=== PATIENT | male | born 1970 | race American Indian/Alaskan Native ===

== ENCOUNTER 2021-06-15 18:10 | Inpatient (IN) | payer OTHER ==
--- NOTE | 2021-06-15 18:22 | Emergency Department Report ---
HPI - General Time Seen by Provider: 06/15/21 18:15 - HPI HPI: Room 18 The patient is a 50-year-old male present with a chief complaint of hypoxia/altered mental status. Per EMS the patient was recently diagnosed with COVID-19. The patient's son found the patient with increased work of breathing and when he attempted to awaken him the patient appeared acutely altered. EMS was called and arrived on scene to find the patient with an SPO2 in the 40s with a GCS of 12. Patient was placed on nonrebreather with improvement of his SPO2 to approximately 79%. Patient became alert and oriented x3 after supplemental O2. GCS 15 ED Past Medical Hx - Past Medical History Hx Hypertension: Yes - Surgical History Past Surgical History?: No - Family History Family history: no significant - Social History Smoking Status: Unknown if ever smoked ED Review of Systems ROS: Stated complaint: RESPIRATORY FAILURE Other details as noted in HPI Constitutional: no symptoms reported Eyes: denies: eye pain ENT: denies: throat pain Respiratory: cough, shortness of breath Cardiovascular: denies: chest pain Endocrine: no symptoms reported Gastrointestinal: denies: abdominal pain Musculoskeletal: denies: back pain Neurological: confusion Physical Exam - Physical Exam Physical Exam: GENERAL: The patient is well-developed well-nourished male lying on stretcher not appearing to be in acute distress nonrebreather in place. [] HEENT: Normocephalic. Atraumatic. Extraocular motions are intact. Patient has moist mucous membranes. NECK: Supple. Trachea midline CHEST/LUNGS: Occasional crackle with occasional coarse breath sounds. There is no respiratory distress noted. HEART/CARDIOVASCULAR: Regular. There is tachycardia. There is no gallop rub or murmur. ABDOMEN: Abdomen is soft, nontender. Patient has normal bowel sounds. There is no abdominal distention. SKIN: There is no rash. There is no edema. There is no diaphoresis. NEURO: The patient is awake, alert, and oriented. The patient appears slightly confused when asked questions. The patient is cooperative. The patient has no focal neurologic deficits. The patient has normal speech. GCS 15 MUSCULOSKELETAL: There is no evidence of acute injury. ED Medical Decision Making - Lab Data Result diagrams: 06/15/21 19:28 06/15/21 19:28 Laboratory Tests 06/15/21 06/15/21 06/15/21 19:28 19:28 19:28 WBC 11.7 H RBC 6.09 H Hgb 18.7 H Hct 53.6 H MCV 88 MCH 31 MCHC 35 H RDW 13.8 Plt Count 109 L Lymph % (Auto) 8.0 L [place] % (Auto) 14.7 H Eos % (Auto) 0.0 Baso % (Auto) 0.2 Lymph # (Auto) 0.9 L [place] # (Auto) 1.7 H Eos # (Auto) 0.0 Baso # (Auto) 0.0 Seg Neutrophils % 77.1 H Seg Neutrophils # 9.0 H D-Dimer Sodium 135 L Potassium 4.9 Chloride 95.9 L Carbon Dioxide 24 Anion Gap 20 BUN 87 H Creatinine 2.6 H Estimated GFR 26 BUN/Creatinine Ratio 33 Glucose 140 H Lactic Acid 3.70 H* Calcium 8.0 L Ferritin Total Bilirubin 2.10 H AST 132 H ALT 112 H Alkaline Phosphatase 76 Lactate Dehydrogenase Troponin T 0.066 H C-Reactive Protein Total Protein 7.4 Albumin 3.5 L Albumin/Globulin Ratio 0.9 Triglycerides 275 H Cholesterol 144 LDL Cholesterol Direct 69 HDL Cholesterol 27 L Cholesterol/HDL Ratio 5.33 06/15/21 06/15/21 06/15/21 19:28 19:28 19:28 WBC RBC Hgb Hct MCV MCH MCHC RDW Plt Count Lymph % (Auto) [place] % (Auto) Eos % (Auto) Baso % (Auto) Lymph # (Auto) [place] # (Auto) Eos # (Auto) Baso # (Auto) Seg Neutrophils % Seg Neutrophils # D-Dimer > 43849 H Sodium Potassium Chloride Carbon Dioxide Anion Gap BUN Creatinine Estimated GFR BUN/Creatinine Ratio Glucose 132 H Lactic Acid Calcium Ferritin 9451.0 H Total Bilirubin AST ALT Alkaline Phosphatase Lactate Dehydrogenase 2289 H Troponin T C-Reactive Protein 11.10 H Total Protein Albumin Albumin/Globulin Ratio Triglycerides Cholesterol LDL Cholesterol Direct HDL Cholesterol Cholesterol/HDL Ratio - EKG Data -: EKG Interpreted by Me EKG shows normal: sinus rhythm Rate: normal - EKG Data When compared to previous EKG there are: previous EKG unavailable Interpretation: other (No ischemic changes seen) - Radiology Data Radiology results: report reviewed (Chest x-ray), image reviewed (Chest x-ray) interpreted by me: Chest [id number] haziness. No pneumothorax. [facility] [address] [place] [address] XRay Report Signed Patient: JAY ABAD MR#: [id number] : 1970 Acct:[id number] Age/Sex: 50 / M ADM Date: 06/15/21 Loc: ED Attending Dr: Ordering Physician: AZUL CARLOS MD Date of Service: 06/15/21 Procedure(s): XR chest 1V ap Accession Number(s): [id number] cc: AZUL CARLOS MD Fluoro Time In Minutes: Chest single view INDICATION: Dyspnea IMPRESSION: The heart is enlarged. There is patchy bilateral airspace pneumonia noted bilaterally. Signer Name: Miguelito Champion MD Signed: 06/15/2021 6:44 PM Workstation Name: [id number] Transcribed By: BC Dictated By: Miguelito Champion MD Electronically Authenticated By: Miguelito Champion MD Signed Date/Time: 06/15/211843 DD/ 43 TD/TT: Print Cancel - Differential Diagnosis COVID-19 positive test (U07.1, COVID-19) with Acute Pneumonia (J12.89, O Critical care attestation.: If time is entered above; I have spent that time in minutes in the direct care of this critically ill patient, excluding procedure time. ED Disposition Clinical Impression: Pneumonia due to COVID-19 virus, Hypoxia Disposition: ADMITTED INPATIENT Is pt being admited?: Yes Does the pt Need Aspirin: No Condition: Serious Instructions: Bacterial Pneumonia (ED) Time of Disposition: 21:41 (Hospitalist called (Dr Boyd/Lynn))
--- NOTE | 2021-06-15 18:48 | XRay Report ---
Chest single view INDICATION: Dyspnea IMPRESSION: The heart is enlarged. There is patchy bilateral airspace pneumonia noted bilaterally. Signer Name: Miguelito Champion MD Signed: 06/15/2021 6:44 PM Workstation Name: [id number]
[2021-06-15] MEDS ORDERED: SODIUM CHLORIDE 0.9% 1000 ML 1,000 ML IV ONE (19:45)
[2021-06-15 20:04] LABS: Basophils % (Auto) 0.2 % (0.0-1.8); Hematocrit 53.6 % (35.5-45.6); Hemoglobin 18.7 gm/dl (11.8-15.2); Lymphocytes # (Auto) 0.9 K/mm3 (1.2-5.4); Mean Corpuscular HGB Conc 35 % (32-34); Mean Corpuscular Volume 88 fl (84-94); Monocytes # (Auto) 1.7 K/mm3 (0.0-0.8); Monocytes % (Auto) 14.7 % (0.0-7.3); Red Blood Count 6.09 M/mm3 (3.65-5.03); Red Cell Distribution Width 13.8 % (13.2-15.2)
[2021-06-15 20:08] LABS: Platelet Count 109 K/mm3 (140-440)
[2021-06-15 20:17] LABS: C-Reactive Protein 11.1 mg/dL (0.00-1.30)
[2021-06-15 20:26] LABS: Albumin 3.5 g/dL (3.9-5)
[2021-06-15] MEDS ORDERED: AZITHROMYCIN/NS 500 MG/250 ML 500 MG/250 ML BAG IV ONE (20:30)
[2021-06-15] MEDS ORDERED: cefTRIAXone/NS 1 GM/50 ML 1 GM/50 ML BAG IV ONE (20:30)
[2021-06-15] MEDS ORDERED: dexAMETHasone 20 MG/5 ML VIAL IV ONE (20:30)
[2021-06-15 20:58] LABS: Chol/HDL Ratio 5.33 %
[2021-06-15] MEDS ORDERED: LORazepam 2 MG/ML VIAL IV ONE (21:42)
[2021-06-15 22:56] LABS: Amorphous Crystals,Urine Few; Bilirubin,Urine NEG (Negative); Blood,Urine MOD (Negative); Color,Urine Yellow (Yellow); Granular Casts,Urine 25 /LPF; Mucus,Urine FEW /HPF
[2021-06-15] MEDS ORDERED: ONDANSETRON 4 MG/2 ML INJ IV PRN (22:59)
[2021-06-15] MEDS ORDERED: ACETAMINOPHEN 325 MG TAB PO PRN (22:59)
[2021-06-15] MEDS ORDERED: MORPHINE 4 MG/1 ML INJ IV PRN (22:59)
[2021-06-15] MEDS ORDERED: MAGNESIUM HYDROXIDE (MOM) ORAL LIQD UDC PO PRN (22:59)
[2021-06-15] MEDS ORDERED: MORPHINE 2 MG/1 ML INJ IV PRN (22:59)
[2021-06-15] MEDS ORDERED: SODIUM CHLORIDE 0.9% 1000 ML 1,000 ML IV SCH (23:00)
--- NOTE | 2021-06-15 23:21 | History and Physical Report ---
History of Present Illness Date of examination: 06/15/21 Date of admission: 06/15/2021 Chief complaint: Shortness Altered Mental Status History of present illness: 50-year-old male with significant past medical history of hypertension brought into the emergency room by EMS today complaining of shortness of breath. Patient was recently diagnosed with COVID-19 about a week ago and over the past few days he has had increased work of breathing. Oxygen saturation upon arrival of EMS was about 40% on room air, patient was found to be altered and was subsequently placed on nonrebreather with improvement of oxygen saturation to the 70s. Upon arrival in the emergency room patient was placed on BiPAP with significant improvement. He has denied any fever or chills, no chest pain, no nausea vomiting, no abdominal pain, no headache or dizziness, no diaphoresis. Patient denies any recent travel and denies any sick contacts. He has not had his COVID-19 vaccination. Work-up in the emergency room today reveals mild leukocytosis of 11.7, hemoglobin 18.7 and hematocrit of 53.6. D-dimer was elevated at greater than 10,000. BUN and creatinine were also elevated at 87 and 2.6. Liver enzymes were abnormally high. Chest x-ray reveals:The heart is enlarged. There is patchy bilateral airspace pneumonia noted bilaterally. Past History Past Medical History: hypertension Past Surgical History: denies: No surgical history Social history: denies: no significant social history Family history: denies: no significant family history Medications and Allergies Allergies Allergy/AdvReac Type Severity Reaction Status Date / Time No Known Allergies Allergy Unverified 06/15/21 20:02 Active Meds: Active Medications Acetaminophen (Acetaminophen 325 Mg Tab) 650 mg PO Q4H PRN PRN Reason: Pain MILD(1-3)/Fever >100.5/NEGRON Heparin Sodium (Porcine) (Heparin 5,000 Unit/1 Ml Vial) 5,000 unit SUB-Q Q8HR HOWARD Sodium Chloride (Nacl 0.9% 1000 Ml) 1,000 mls @ 125 mls/hr IV DIRECT HOWARD Ceftriaxone Sodium (Rocephin/Ns 2 Gm/100 Ml) 2 gm in 100 mls @ 200 mls/hr IV Q24H HOWARD; Protocol Azithromycin (Zithromax/Ns) 500 mg in 250 mls @ 250 mls/hr IV Q24H HOWARD; Protocol Magnesium Hydroxide (Magnesium Hydroxide (Mom) Oral Liqd Udc) 30 ml PO Q4H PRN PRN Reason: Constipation Morphine Sulfate (Morphine 2 Mg/1 Ml Inj) 2 mg IV Q4H PRN PRN Reason: Pain, Moderate (4-6) Morphine Sulfate (Morphine 4 Mg/1 Ml Inj) 4 mg IV Q4H PRN PRN Reason: Pain , Severe (7-10) Ondansetron HCl (Ondansetron 4 Mg/2 Ml Inj) 4 mg IV Q8H PRN PRN Reason: Nausea And Vomiting Sodium Chloride (Sodium Chloride 0.9% 10 Ml Flush Syringe) 10 ml IV BID HOWARD Sodium Chloride (Sodium Chloride 0.9% 10 Ml Flush Syringe) 10 ml IV PRN PRN PRN Reason: LINE FLUSH Review of Systems Constitutional: no fever, no chills Ears, nose, mouth and throat: no nasal congestion, no sore throat Cardiovascular: no chest pain, no palpitations Respiratory: cough, shortness of breath Gastrointestinal: no abdominal pain, no nausea, no vomiting, no diarrhea Genitourinary Male: no dysuria, no hematuria, no flank pain, no nocturia Musculoskeletal: no neck pain, no low back pain Integumentary: no rash, no pruritis Neurological: no headaches, no confusion Psychiatric: no anxiety, no depression Endocrine: no polyphagia, no polydipsia, no polyuria, no nocturia Exam - Constitutional Vitals: Temp Pulse Resp BP Pulse Ox 96.3 F L 105 H 28 H 148/103 99 06/15/21 18:55 06/15/21 20:57 06/15/21 20:57 06/15/21 20:57 06/15/21 20:57 General appearance: Present: mild distress, well-nourished - EENT Eyes: Present: PERRL, EOM intact. Absent: scleral icterus ENT: hearing intact, clear oral mucosa, dentition normal - Neck Neck: Present: supple, normal ROM - Respiratory Respiratory effort: labored Respiratory: bilateral: rales - Cardiovascular Rhythm: regular Heart Sounds: Present: S1 & S2. Absent: gallop, systolic murmur, diastolic murmur, rub, click - Extremities Extremities: no ischemia, pulses intact, pulses symmetrical, No edema, normal temperature, normal color, Full ROM Peripheral Pulses: within normal limits - Abdominal General gastrointestinal: Present: soft, non-tender, non-distended, normal bowel sounds. Absent: mass - Integumentary Integumentary: Present: clear, warm, dry. Absent: rash - Musculoskeletal Musculoskeletal: strength equal bilaterally - Psychiatric Psychiatric: appropriate mood/affect, intact judgment & insight, memory intact, cooperative - Neurologic Neurologic: CNII-XII intact, no focal deficits, moves all extremities HEART Score - HEART Score Troponin: Troponin T 0.066 ng/mL (0.00-0.029) H 06/15/21 19:28 Results - Labs CBC & Chem 7: 06/15/21 19:28 06/15/21 19:28 Labs: Abnormal lab results 06/15/21 06/15/21 06/15/21 Range/Units 19:28 19:28 19:28 WBC 11.7 H (4.5-11.0) K/mm3 RBC 6.09 H (3.65-5.03) M/mm3 Hgb 18.7 H (11.8-15.2) gm/dl Hct 53.6 H (35.5-45.6) % MCHC 35 H (32-34) % Plt Count 109 L (140-440) K/mm3 Lymph % (Auto) 8.0 L (13.4-35.0) % [place] % (Auto) 14.7 H (0.0-7.3) % Lymph # (Auto) 0.9 L (1.2-5.4) K/mm3 [place] # (Auto) 1.7 H (0.0-0.8) K/mm3 Seg Neutrophils % 77.1 H (40.0-70.0) % Seg Neutrophils # 9.0 H (1.8-7.7) K/mm3 D-Dimer (0-234) ng/mlDDU Sodium 135 L (137-145) mmol/L Chloride 95.9 L (98-107) mmol/L BUN 87 H (9-20) mg/dL Creatinine 2.6 H (0.8-1.3) mg/dL Glucose 140 H (75-100) mg/dL Lactic Acid 3.70 H* (0.7-2.0) mmol/L Calcium 8.0 L (8.4-10.2) mg/dL Ferritin (30.0-300.0) ng/mL Total Bilirubin 2.10 H (0.1-1.2) mg/dL AST 132 H (5-40) units/L ALT 112 H (7-56) units/L Lactate Dehydrogenase (91-180) units/L Troponin T 0.066 H (0.00-0.029) ng/mL C-Reactive Protein (0.00-1.30) mg/dL Albumin 3.5 L (3.9-5) g/dL Triglycerides 275 H (2-149) mg/dL HDL Cholesterol 27 L (40-59) mg/dL 06/15/21 06/15/21 06/15/21 Range/Units 19:28 19:28 19:28 WBC (4.5-11.0) K/mm3 RBC (3.65-5.03) M/mm3 Hgb (11.8-15.2) gm/dl Hct (35.5-45.6) % MCHC (32-34) % Plt Count (140-440) K/mm3 Lymph % (Auto) (13.4-35.0) % [place] % (Auto) (0.0-7.3) % Lymph # (Auto) (1.2-5.4) K/mm3 [place] # (Auto) (0.0-0.8) K/mm3 Seg Neutrophils % (40.0-70.0) % Seg Neutrophils # (1.8-7.7) K/mm3 D-Dimer > 48620 H (0-234) ng/mlDDU Sodium (137-145) mmol/L Chloride (98-107) mmol/L BUN (9-20) mg/dL Creatinine (0.8-1.3) mg/dL Glucose 132 H (75-100) mg/dL Lactic Acid (0.7-2.0) mmol/L Calcium (8.4-10.2) mg/dL Ferritin 9451.0 H (30.0-300.0) ng/mL Total Bilirubin (0.1-1.2) mg/dL AST (5-40) units/L ALT (7-56) units/L Lactate Dehydrogenase 2289 H (91-180) units/L Troponin T (0.00-0.029) ng/mL C-Reactive Protein 11.10 H (0.00-1.30) mg/dL Albumin (3.9-5) g/dL Triglycerides (2-149) mg/dL HDL Cholesterol (40-59) mg/dL Assessment and Plan - Patient Problems (1) Pneumonia due to COVID-19 virus Current Visit: No Status: Inactive Plan to address problem: Patient placed on isolation precautions. He has been started on IV steroid. Consult placed to infectious disease for evaluation and recommendations. (2) Hypoxia Current Visit: No Status: Inactive Plan to address problem: Secondary to the Covid pneumonia. We will keep O2 saturation greater or equal to 92%. (3) Sepsis Current Visit: Yes Status: Acute Plan to address problem: Present on admission. Secondary to the underlying pneumonia. We will continue on IV fluid and antibiotics. We will monitor labs and vital signs closely. (4) Acute kidney injury Current Visit: Yes Status: Acute Plan to address problem: Possibly prerenal Patient placed on IV fluid normal saline. Will request nephrology input. (5) Elevated d-dimer Current Visit: Yes Status: Acute Plan to address problem: Possibly secondary to the Covid infection. However we will check patient for possible pulmonary embolism. In view of the low GFR, will request a VQ scan. (6) Elevated liver enzymes Current Visit: Yes Status: Acute Plan to address problem: Possibly secondary to the Covid pneumonia. We will trend liver enzymes. (7) Lactic acidosis Current Visit: Yes Status: Acute Plan to address problem: Possibly secondary to the underlying infection. We will continue on IV fluid and antibiotics. (8) Hypertension Current Visit: No Status: Acute Plan to address problem: We will resume routine home medications and monitor vital signs closely. (9) DVT prophylaxis Current Visit: No Status: Acute Plan to address problem: Patient placed on subcutaneous heparin. (10) Full code status Current Visit: No Status: Acute Plan to address problem: Patient is a full code.
[2021-06-16 04:00] LABS: Basophils % (Auto) 0.1 % (0.0-1.8); Hematocrit 52.5 % (35.5-45.6); Hemoglobin 18.1 gm/dl (11.8-15.2); Lymphocytes # (Auto) 0.9 K/mm3 (1.2-5.4); Lymphocytes % (Auto) 6.8 % (13.4-35.0); Mean Corpuscular HGB Conc 34 % (32-34); Mean Corpuscular Volume 88 fl (84-94); Monocytes # (Auto) 1.2 K/mm3 (0.0-0.8); Monocytes % (Auto) 9.2 % (0.0-7.3); Platelet Count 100 K/mm3 (140-440); Red Blood Count 5.97 M/mm3 (3.65-5.03)
[2021-06-16 04:11] LABS: INR 1.15 (0.87-1.13)
[2021-06-16 04:17] LABS: Calcium 7.8 mg/dL (8.4-10.2)
[2021-06-16] MEDS ORDERED: HEPARIN 5,000 UNIT/1 ML VIAL SUB-Q SCH (06:00)
--- NOTE | 2021-06-16 09:07 | Consultation ---
History of Present Illness - History of Present Illness Thank you for the consultation Patient was evaluated today My assessment and plan are as follows Renal failure in a 50-year-old male with the respiratory failure, no hematuria, no pyuria but has significant number of granular casts in the urine Does have some risk factors for underlying chronic kidney disease including history of hypertension Admission creatinine was 2.6 currently 2.3 no evidence of acidosis or hyperkalemia Most likely etiology is acute tubular necrosis resulting from respiratory failure rule out other causes Baseline creatinine: Unknown Renal prognosis appears to be guarded at this time Patient may need renal replacement therapy, if renal function worsens however currently appears to be nonoliguric Will order workup for renal failure, supportive care for now #Hyponatremia: Appears to be better currently 138 was 135 yesterday #Lactic acidosis appears to be improving 3.8 yesterday currently 2.9 Respiratory failure: Being ruled out for Covid 19 #renal prognosis remains guarded at this time however there is no urgent to emergent indication for renal replacement therapy continue with supportive measures including gentle hydration and oxygenation maintaining map over 65 Follow-up serial labs Author: Neto Sood M.D. [facility], [address] [place] [address] Tel; [phone] Source of information: From the current chart patient has respiratory failure History of present illness 50-year-old male who has been admitted here with the progressive worsening of shortness of breath diagnosed with Covid 19 about a week ago was markedly hypoxic oxygen saturation was down to 40%, patient did not get vaccinated for Covid 19 Events of this hospitalization were noted chest x-ray showed bilateral patchy infiltrates cardiac shadow is enlarged, Creatinine however is slowly improving lactic acidosis and improving Past medical history: Recent Covid infection Hypertension Current allergies: Reviewed from the current chart Social history: Reviewed from the current chart Family history: Reviewed from the current chart Review of system: Unable to obtain due to respiratory failure Physical examination Vitals: Reviewed Physical examination findings were reviewed from IMS as well as other disciplines notes Due to ongoing pandemic with Covid 19 to contain and reduce the risk of transm ission across infection patient was not directly examined [id number] but physical examination and findings have been carefully reviewed from patient's chart Labs and x-rays: Reviewed from this admission Past History Past Medical History: hypertension Past Surgical History: denies: No surgical history Social history: denies: no significant social history Family history: denies: no significant family history Medications and Allergies Allergies Allergy/AdvReac Type Severity Reaction Status Date / Time No Known Allergies Allergy Unverified 06/15/21 20:02 Active Meds: Active Medications Acetaminophen (Acetaminophen 325 Mg Tab) 650 mg PO Q4H PRN PRN Reason: Pain MILD(1-3)/Fever >100.5/NEGRON Dexamethasone (Dexamethasone 4 Mg/Ml Vial) 6 mg IV Q24HR HOWARD Heparin Sodium (Porcine) (Heparin 5,000 Unit/1 Ml Vial) 5,000 unit SUB-Q Q8HR HOWARD Sodium Chloride (Nacl 0.9% 1000 Ml) 1,000 mls @ 125 mls/hr IV DIRECT HOWARD Ceftriaxone Sodium (Rocephin/Ns 2 Gm/100 Ml) 2 gm in 100 mls @ 200 mls/hr IV Q24HR HOWARD; Protocol Azithromycin (Zithromax/Ns) 500 mg in 250 mls @ 250 mls/hr IV Q24HR HOWARD; Protocol Magnesium Hydroxide (Magnesium Hydroxide (Mom) Oral Liqd Udc) 30 ml PO Q4H PRN PRN Reason: Constipation Morphine Sulfate (Morphine 2 Mg/1 Ml Inj) 2 mg IV Q4H PRN PRN Reason: Pain, Moderate (4-6) Morphine Sulfate (Morphine 4 Mg/1 Ml Inj) 4 mg IV Q4H PRN PRN Reason: Pain , Severe (7-10) Ondansetron HCl (Ondansetron 4 Mg/2 Ml Inj) 4 mg IV Q8H PRN PRN Reason: Nausea And Vomiting Sodium Chloride (Sodium Chloride 0.9% 10 Ml Flush Syringe) 10 ml IV BID HOWARD Sodium Chloride (Sodium Chloride 0.9% 10 Ml Flush Syringe) 10 ml IV PRN PRN PRN Reason: LINE FLUSH Exam - Vital Signs Vital signs: Vital Signs Pulse Resp Pulse Ox 112 H 32 H 96 06/15/21 18:20 06/15/21 18:20 06/15/21 18:20 Results - Lab Results 06/16/21 03:31 06/16/21 03:31 Most recent lab results Calcium 7.8 mg/dL (8.4-10.2) L 06/16/21 03:31
[2021-06-16] MEDS ORDERED: cefTRIAXone/NS 2 GM/100 ML 2 GM/100 ML BAG IV SCH (10:00)
[2021-06-16] MEDS ORDERED: dexAMETHasone 4 MG/ML VIAL IV SCH (10:00)
[2021-06-16] MEDS ORDERED: AZITHROMYCIN/NS 500 MG/250 ML 500 MG/250 ML BAG IV SCH (10:00)
[2021-06-16 10:22] LABS: Uric Acid 8.9 mg/dL (3.5-7.6)
--- NOTE | 2021-06-16 10:26 | Progress Note ---
Assessment and Plan Assessment and plan: Acute hypoxic respiratory failure COVID-19 pneumonia. Outpatient diagnosis approximately 1 week ago. Severe sepsis. Patient meets criteria given the leukocytosis, tachycardia, lactic acidosis and diagnosis of pneumonia. Acute kidney injury. Etiology secondary to ATN/sepsis. We do not have a baseli ne creatinine to compare. Elevated D-dimer. Transaminitis Hypertension Hyponatremia 06/16/2021. Patient was previously on BiPAP but noncompliant with mask. Patient now on high flow nasal cannula 30 L O2 with FiO2 of 100%. We will start full dose therapeutic anticoagulation given the extremely elevated D-dimer. Unable to perform CTA given the elevated creatinine. Continue IV antibiotics until procalcitonin resulted. Continue to trend inflammatory markers. Continue dexamethasone IV. Patient likely unable to have remdesivir given the renal insufficiency. However, we will defer to infectious disease. Prone positioning as able. ID and pulmonary consultations pending. The high probability of a clinically significant, sudden or life threatening deterioration of the [respiratory and renal] system(s) required my full and direct attention, intervention and personal management. The aggregate critical care time was [33] minutes. This time is in addition to time spent performing re ported procedures but includes the following: [x] Data Review and interpretation [x] Patient assessment and monitoring of vital signs [x] Documentation [x] Medication orders and management History Interval history: No new issues overnight Hospitalist Physical - Constitutional Vitals: Temp Pulse Resp BP Pulse Ox 96.3 F L 105 H 28 H 148/103 95 06/15/21 18:55 06/15/21 20:57 06/15/21 20:57 06/15/21 20:57 06/16/21 09:51 General appearance: Present: mild distress, well-nourished - EENT Eyes: Present: PERRL, EOM intact ENT: hearing intact, clear oral mucosa, dentition normal - Neck Neck: Present: supple, normal ROM - Respiratory Respiratory effort: normal Respiratory: bilateral: CTA - Cardiovascular Rhythm: regular Heart Sounds: Present: S1 & S2. Absent: gallop, rub - Extremities Extremities: no ischemia, No edema, Full ROM - Abdominal General gastrointestinal: soft, non-tender, non-distended, normal bowel sounds - Integumentary Integumentary: Present: clear, warm, dry - Neurologic Neurologic: CNII-XII intact, moves all extremities HEART Score - HEART Score Troponin: Troponin T 0.066 ng/mL (0.00-0.029) H 06/15/21 19:28 Results - Labs CBC & Chem 7: 06/16/21 03:31 06/16/21 03:31 Labs: Laboratory Last Values WBC 13.2 K/mm3 (4.5-11.0) H 06/16/21 03:31 RBC 5.97 M/mm3 (3.65-5.03) H 06/16/21 03:31 Hgb 18.1 gm/dl (11.8-15.2) H 06/16/21 03:31 Hct 52.5 % (35.5-45.6) H 06/16/21 03:31 MCV 88 fl (84-94) 06/16/21 03:31 MCH 30 pg (28-32) 06/16/21 03:31 MCHC 34 % (32-34) 06/16/21 03:31 RDW 14.0 % (13.2-15.2) 06/16/21 03:31 Plt Count 100 K/mm3 (140-440) L 06/16/21 03:31 Lymph % (Auto) 6.8 % (13.4-35.0) L 06/16/21 03:31 [place] % (Auto) 9.2 % (0.0-7.3) H 06/16/21 03:31 Eos % (Auto) 0.0 % (0.0-4.3) 06/16/21 03:31 Baso % (Auto) 0.1 % (0.0-1.8) 06/16/21 03:31 Lymph # (Auto) 0.9 K/mm3 (1.2-5.4) L 06/16/21 03:31 [place] # (Auto) 1.2 K/mm3 (0.0-0.8) H 06/16/21 03:31 Eos # (Auto) 0.0 K/mm3 (0.0-0.4) 06/16/21 03:31 Baso # (Auto) 0.0 K/mm3 (0.0-0.1) 06/16/21 03:31 Seg Neutrophils % 83.9 % (40.0-70.0) H 06/16/21 03:31 Seg Neutrophils # 11.1 K/mm3 (1.8-7.7) H 06/16/21 03:31 PT 15.2 Sec. (12.2-14.9) H 06/16/21 03:31 INR 1.15 (0.87-1.13) H 06/16/21 03:31 D-Dimer > 84651 ng/mlDDU (0-234) H 06/15/21 19:28 Sodium 138 mmol/L (137-145) 06/16/21 03:31 Potassium 5.0 mmol/L (3.6-5.0) 06/16/21 03:31 Chloride 99.9 mmol/L (98-107) 06/16/21 03:31 Carbon Dioxide 26 mmol/L (22-30) 06/16/21 03:31 Anion Gap 17 mmol/L 06/16/21 03:31 BUN 79 mg/dL (9-20) H 06/16/21 03:31 Creatinine 2.3 mg/dL (0.8-1.3) H 06/16/21 03:31 Estimated GFR 37 ml/min 06/16/21 03:31 BUN/Creatinine Ratio 34 % 06/16/21 03:31 Glucose 151 mg/dL (75-100) H 06/16/21 03:31 Lactic Acid < 0.20 mmol/L (0.7-2.0) L 06/16/21 08:39 Calcium 7.8 mg/dL (8.4-10.2) L 06/16/21 03:31 Ferritin 9451.0 ng/mL (30.0-300.0) H 06/15/21 19:28 Total Bilirubin 2.10 mg/dL (0.1-1.2) H 06/15/21 19:28 AST 132 units/L (5-40) H 06/15/21 19:28 ALT 112 units/L (7-56) H 06/15/21 19:28 Alkaline Phosphatase 76 units/L (35-129) 06/15/21 19:28 Lactate Dehydrogenase 2289 units/L (91-180) H 06/15/21 19:28 Troponin T 0.066 ng/mL (0.00-0.029) H 06/15/21 19:28 C-Reactive Protein 11.10 mg/dL (0.00-1.30) H 06/15/21 19:28 Total Protein 7.4 g/dL (6.3-8.2) 06/15/21 19:28 Albumin 3.5 g/dL (3.9-5) L 06/15/21 19:28 Albumin/Globulin Ratio 0.9 % 06/15/21 19:28 Triglycerides 275 mg/dL (2-149) H 06/15/21 19:28 Cholesterol 144 mg/dL (50-199) 06/15/21 19:28 LDL Cholesterol Direct 69 mg/dL (50-130) 06/15/21 19:28 HDL Cholesterol 27 mg/dL (40-59) L 06/15/21 19:28 Cholesterol/HDL Ratio 5.33 % 06/15/21 19:28 Urine Color Yellow (Yellow) 06/15/21 Unknown Urine Turbidity Hazy (Clear) 06/15/21 Unknown Urine pH 5.0 (5.0-7.0) 06/15/21 Unknown Ur Specific [place] 1.017 (1.003-1.030) 06/15/21 Unknown Urine Protein 30 mg/dl mg/dL (Negative) 06/15/21 Unknown Urine Glucose (UA) Neg mg/dL (Negative) 06/15/21 Unknown Urine Ketones Neg mg/dL (Negative) 06/15/21 Unknown Urine Blood Mod (Negative) 06/15/21 Unknown Urine Nitrite Neg (Negative) 06/15/21 Unknown Urine Bilirubin Neg (Negative) 06/15/21 Unknown Urine Urobilinogen 4.0 mg/dL (<2.0) 06/15/21 Unknown Ur Leukocyte Esterase Neg (Negative) 06/15/21 Unknown Urine WBC (Auto) 5.0 /HPF (0.0-6.0) 06/15/21 Unknown Urine RBC (Auto) 1.0 /HPF (0.0-6.0) 06/15/21 Unknown U Epithel Cells (Auto) 1.0 /HPF (0-13.0) 06/15/21 Unknown Amorphous Crystals Few 06/15/21 Unknown Granular Casts 25 /LPF 06/15/21 Unknown Urine Mucus Few /HPF 06/15/21 Unknown Microbiology: Microbiology 06/15/21 19:36 Peripheral/Venous Blood Culture - Preliminary Culture in Progress 06/15/21 19:28 Peripheral/Venous Blood Culture - Preliminary Culture in Progress Active Medications - Current Medications Current Medications: Generic Name Dose Route Start Last Admin Trade Name Freq PRN Reason Stop Dose Admin Acetaminophen 650 mg 06/15/21 22:59 Acetaminophen 325 Mg Tab PO Q4H PRN Pain MILD(1-3)/Fever >100.5/NEGRON Dexamethasone 6 mg 06/16/21 10:00 Dexamethasone 4 Mg/Ml Vial IV Q24HR [facility] Heparin Sodium (Porcine) 5,000 unit 06/16/21 06:00 Heparin 5,000 Unit/1 Ml Vial SUB-Q Q8HR [facility] Sodium Chloride 1,000 mls @ 125 mls/hr 06/15/21 23:00 Nacl 0.9% 1000 Ml IV DIRECT [facility] Ceftriaxone Sodium 2 gm in 100 mls @ 200 mls/hr 06/16/21 10:00 Rocephin/Ns 2 Gm/100 Ml IV Q24HR [facility] Protocol Azithromycin 500 mg in 250 mls @ 250 mls/hr 06/16/21 10:00 Zithromax/Ns IV Q24HR [facility] Protocol Magnesium Hydroxide 30 ml 06/15/21 22:59 Magnesium Hydroxide (Mom) Oral Liqd Udc PO Q4H PRN Constipation Morphine Sulfate 2 mg 06/15/21 22:59 Morphine 2 Mg/1 Ml Inj IV Q4H PRN Pain, Moderate (4-6) Morphine Sulfate 4 mg 06/15/21 22:59 Morphine 4 Mg/1 Ml Inj IV Q4H PRN Pain , Severe (7-10) Ondansetron HCl 4 mg 06/15/21 22:59 Ondansetron 4 Mg/2 Ml Inj IV Q8H PRN Nausea And Vomiting Sodium Chloride 10 ml 06/16/21 10:00 Sodium Chloride 0.9% 10 Ml Flush Syringe IV BID [facility] Sodium Chloride 10 ml 06/15/21 22:59 Sodium Chloride 0.9% 10 Ml Flush Syringe IV PRN PRN LINE FLUSH
[2021-06-16 10:50] LABS: C-Reactive Protein 11.9 mg/dL (0.00-1.30)
--- NOTE | 2021-06-16 14:55 | Consultation ---
History of Present Illness Consult date: 06/16/21 Reason for consult: dyspnea History of present illness: 50-year-old male with significant past medical history of hypertension brought into the emergency room by EMS today complaining of shortness of breath. Patient was recently diagnosed with COVID-19 about a week ago and over the past few days he has had increased work of breathing. Oxygen saturation upon arrival of EMS was about 40% on room air, patient was found to be altered and was subsequently placed on nonrebreather with improvement of oxygen saturation to the 70s. Upon arrival in the emergency room patient was placed on BiPAP with significant improvement. He has denied any fever or chills, no chest pain, no nausea vomiting, no abdominal pain, no headache or dizziness, no diaphoresis. Patient denies any recent travel and denies any sick contacts. He has not had his COVID-19 vaccination. Work-up in the emergency room today reveals mild leukocytosis of 11.7, hemoglobin 18.7 and hematocrit of 53.6. D-dimer was elevated at greater than 10,000. BUN and creatinine were also elevated at 87 and 2.6. Liver enzymes were abnormally high. Chest x-ray reveals:The heart is enlarged. There is patchy bilateral airspace pneumonia noted bilaterally. Past History Past Medical History: hypertension Past Surgical History: denies: No surgical history Social history: denies: no significant social history Family history: denies: no significant family history Medications and Allergies Allergies Allergy/AdvReac Type Severity Reaction Status Date / Time No Known Allergies Allergy Unverified 06/15/21 20:02 Active Meds: Active Medications Acetaminophen (Acetaminophen 325 Mg Tab) 650 mg PO Q4H PRN PRN Reason: Pain MILD(1-3)/Fever >100.5/NEGRON Dexamethasone (Dexamethasone 4 Mg/Ml Vial) 6 mg IV Q24HR [facility] Heparin Sodium (Porcine) (Heparin 5,000 Unit/1 Ml Vial) 5,000 unit SUB-Q Q8HR [facility] Sodium Chloride (Nacl 0.9% 1000 Ml) 1,000 mls @ 125 mls/hr IV DIRECT [facility] Ceftriaxone Sodium (Rocephin/Ns 2 Gm/100 Ml) 2 gm in 100 mls @ 200 mls/hr IV Q24HR [facility]; Protocol Azithromycin (Zithromax/Ns) 500 mg in 250 mls @ 250 mls/hr IV Q24HR [facility]; Protocol Magnesium Hydroxide (Magnesium Hydroxide (Mom) Oral Liqd Udc) 30 ml PO Q4H PRN PRN Reason: Constipation Morphine Sulfate (Morphine 2 Mg/1 Ml Inj) 2 mg IV Q4H PRN PRN Reason: Pain, Moderate (4-6) Morphine Sulfate (Morphine 4 Mg/1 Ml Inj) 4 mg IV Q4H PRN PRN Reason: Pain , Severe (7-10) Ondansetron HCl (Ondansetron 4 Mg/2 Ml Inj) 4 mg IV Q8H PRN PRN Reason: Nausea And Vomiting Sodium Chloride (Sodium Chloride 0.9% 10 Ml Flush Syringe) 10 ml IV BID [facility] Sodium Chloride (Sodium Chloride 0.9% 10 Ml Flush Syringe) 10 ml IV PRN PRN PRN Reason: LINE FLUSH Review of Systems All systems: negative Respiratory: cough, shortness of breath Physical Examination Vital signs: Vital Signs Pulse Resp Pulse Ox 112 H 32 H 96 06/15/21 18:20 06/15/21 18:20 06/15/21 18:20 General appearance: no acute distress, appears uncomfortable Eyes: non-icteric ENT: oropharynx dry Neck: supple, no JVD Effort: mildly labored Ascultation: Bilateral: diminished breath sounds Integumentary: normal Extremities: no cyanosis, no edema, pink and warm Musculoskeletal: no deformities Gait: other (Not tested) normal mental status mood appropriate Results - Laboratory Findings CBC and BMP: 06/16/21 03:31 06/16/21 03:31 PT/INR, D-dimer PT 15.2 Sec. (12.2-14.9) H 06/16/21 03:31 INR 1.15 (0.87-1.13) H 06/16/21 03:31 D-Dimer > 63214 ng/mlDDU (0-234) H 06/15/21 19:28 Abnormal lab findings: Abnormal Labs 06/15/21 06/15/21 06/15/21 19:28 19:28 19:28 WBC 11.7 H RBC 6.09 H Hgb 18.7 H Hct 53.6 H MCHC 35 H Plt Count 109 L Lymph % (Auto) 8.0 L [place] % (Auto) 14.7 H Lymph # (Auto) 0.9 L [place] # (Auto) 1.7 H Seg Neutrophils % 77.1 H Seg Neutrophils # 9.0 H PT INR D-Dimer Sodium 135 L Chloride 95.9 L BUN 87 H Creatinine 2.6 H Glucose 140 H Lactic Acid 3.70 H* Uric Acid Calcium 8.0 L Ferritin Total Bilirubin 2.10 H AST 132 H ALT 112 H Lactate Dehydrogenase Total Creatine Kinase Troponin T 0.066 H C-Reactive Protein Albumin 3.5 L Triglycerides 275 H HDL Cholesterol 27 L 06/15/21 06/15/21 06/15/21 19:28 19:28 19:28 WBC RBC Hgb Hct MCHC Plt Count Lymph % (Auto) [place] % (Auto) Lymph # (Auto) [place] # (Auto) Seg Neutrophils % Seg Neutrophils # PT INR D-Dimer > 00225 H Sodium Chloride BUN Creatinine Glucose 132 H Lactic Acid Uric Acid Calcium Ferritin 9451.0 H Total Bilirubin AST ALT Lactate Dehydrogenase 2289 H Total Creatine Kinase Troponin T C-Reactive Protein 11.10 H Albumin Triglycerides HDL Cholesterol 06/15/21 06/16/21 06/16/21 21:17 03:31 03:31 WBC 13.2 H RBC 5.97 H Hgb 18.1 H Hct 52.5 H MCHC Plt Count 100 L Lymph % (Auto) 6.8 L [place] % (Auto) 9.2 H Lymph # (Auto) 0.9 L [place] # (Auto) 1.2 H Seg Neutrophils % 83.9 H Seg Neutrophils # 11.1 H PT 15.2 H INR 1.15 H D-Dimer Sodium Chloride BUN Creatinine Glucose Lactic Acid 3.80 H* Uric Acid Calcium Ferritin Total Bilirubin AST ALT Lactate Dehydrogenase Total Creatine Kinase Troponin T C-Reactive Protein Albumin Triglycerides HDL Cholesterol 06/16/21 06/16/21 06/16/21 03:31 03:31 08:39 WBC RBC Hgb Hct MCHC Plt Count Lymph % (Auto) [place] % (Auto) Lymph # (Auto) [place] # (Auto) Seg Neutrophils % Seg Neutrophils # PT INR D-Dimer Sodium Chloride BUN 79 H Creatinine 2.3 H Glucose 151 H Lactic Acid 2.90 H* < 0.20 L Uric Acid Calcium 7.8 L Ferritin Total Bilirubin AST ALT Lactate Dehydrogenase Total Creatine Kinase Troponin T C-Reactive Protein Albumin Triglycerides HDL Cholesterol 06/16/21 06/16/21 06/16/21 09:36 09:36 09:36 WBC RBC Hgb Hct MCHC Plt Count Lymph % (Auto) [place] % (Auto) Lymph # (Auto) [place] # (Auto) Seg Neutrophils % Seg Neutrophils # PT INR D-Dimer Sodium Chloride BUN Creatinine Glucose Lactic Acid Uric Acid 8.9 H Calcium Ferritin 6970.0 H Total Bilirubin AST ALT Lactate Dehydrogenase 2554 H Total Creatine Kinase 886 H Troponin T C-Reactive Protein 11.90 H Albumin Triglycerides HDL Cholesterol - Diagnostic Findings Chest x-ray: image reviewed (Slight cardiomegaly and subtle patchy infiltrate) Assessment and Plan Impression: COVID-19 pneumonia Acute hypoxic respiratory failure secondary to above Polycythemia possibly related to hypoxemia however the full etiology is not clear Thrombocytopenia Renal insufficiency possibly acute on chronic renal failure, nephrology on board Recommendation: Continue with supplemental oxygen currently on 100% nonrebreather mask. Patient will be closely monitored. May require BiPAP. Monitor hemoglobin and hematocrit and platelet count Agree with the treatment of COVID-19 pneumonia with steroids. Treatment of renal failure as per nephrology. Consider infectious disease consultation.
[2021-06-16] MEDS ORDERED: NORepinephrine/NS 4 MG-250 ML 4 MG/250 ML BAG IV ONE (21:52)
[2021-06-16] MEDS ORDERED: DOPamine/D5W 800 MG/250 ML DRIP IV ONE (22:00)
[2021-06-16] MEDS ORDERED: SODIUM BICARB 8.4% 50 MEQ/50 ML SYRINGE IV ONE (22:00)
[2021-06-16] MEDS ORDERED: EPINEPHrine 1 MG/10 ML SYRINGE ONE (22:00)
[2021-06-16] MEDS ORDERED: ATROPINE 0.1% (1 MG/10 ML) CARDIAC SYRINGE ONE (22:00)
[2021-06-16] MEDS ORDERED: LIDOCAINE PF 100 MG/5 ML (CARDIAC SYRINGE) IV ONE (22:00)
--- NOTE | 2021-06-16 22:00 | Event Note ---
Date: 06/16/21 [facility] CODE BLUE note Called to the room by nurses for a CODE BLUE in progress. Patient in PEA has entered the room chest compressions being performed by nursing staff. The patient was intubated by myself and ACLS protocols were continued with eventual return of spontaneous circulation. Central line was started by myself and the patient was initiated on dopamine and then Levophed. Patient remains hypotensive. This was discussed with the patient's attending physician Dr. Boyd. Intubation note Consent was unobtainable due to patient condition Preoxygenation with 100% oxygen A size 8.0 mm ET tube was inserted orally on first attempt using a glide scope There was symmetric chest rise and bilateral breath sounds post intubation A CO2 indicator was used for confirmation and resulted in positive CO2 return ET tube was taped at 24 cm at the lips The patient tolerated the procedure well There were no complications Consent obtained Location: Right femoral The skin was prepped and draped in a sterile fashion. The needle was inserted blood was aspirated after first attempt Using the Seldinger technique a guidewire was inserted. A small incision was made and a dilator was placed. Blood return was good from all 3 ports. All ports were flushed with saline. The central venous line was secured in place with adhesive Sterile OpSite dressing was applied The patient tolerated the procedure well There were no complications
--- NOTE | 2021-06-16 22:25 | Event Note ---
Date: 06/16/21 [facility] CODE BLUE note Called to the room as the patient arrested again. Patient was found to be in fine V. fib. ACLS protocols were continued however the patient's rhythm devolved into asystole and there was no return of spontaneous circulation. Patient . Hospitalist Dr. Boyd was notified
--- NOTE | 2021-06-16 22:39 | Event Note ---
Date: 06/16/21 Informed that 50 year old male admitted yesterday for COVID-19 Pneumonia and who has been on ER hold coded multiple times and all resuscitative measures by ER physician proved futile. Patient had been pronounced by the ER physician on 06/16/2021 at 22:17 PM.
[2021-06-17 01:27] VITALS: BP 138/78
--- NOTE | 2021-06-18 11:10 | Death Summary ---
Summary - Providers Date of service: 06/18/21 Consults: 06/15/21 22:59 Consult to Physician [CONS] Routine Comment: Consulting Provider: LIVIA CASTILLO Physician Instructions: Reason For Exam: PNEUMONIA,COVID-19+VE,HYPOXIA 06/15/21 23:15 Consult to Physician [CONS] Routine Comment: Consulting Provider: ORXANNE VENCES Physician Instructions: Reason For Exam: PNEUMONIA, HYPOXIA.COVID-19+VE 06/16/21 01:15 Consult to Physician [CONS] Routine Comment: Consulting Provider: LASHAWN SANTOS Physician Instructions: Reason For Exam: LUIGI - summary Date of admission: 06/15/21 Date of : 06/17/21 Disposition: 50-year-old male with significant past medical history of hypertension brought into the emergency room by EMS today complaining of shortness of breath. Patient was recently diagnosed with COVID-19 about a week ago and over the past few days he has had increased work of breathing. Oxygen saturation upon arrival of EMS was about 40% on room air, patient was found to be altered and was subsequently placed on nonrebreather with improvement of oxygen saturation to the 70s. Upon arrival in the emergency room patient was placed on BiPAP with significant improvement. Work-up in the emergency room today revealed mild leukocytosis of 11.7, hemoglobin 18.7 and hematocrit of 53.6. D-dimer was elevated at greater than 10,000. BUN and creatinine were also elevated at 87 and 2.6. Liver enzymes were abnormally high. Chest x-ray revealed:The heart is enlarged. There is patchy bilateral airspace pneumonia noted bilaterally. The patient was admitted with diagnosis of acute hypoxic respiratory failure, COVID-19 pneumonia, severe sepsis, acute kidney injury/ATN, elevated D-dimer, transaminitis, lactic acidosis, hypertension Patient unfortunately had some deterioration with respiratory status and CODE BLUE was called on 06/16/2021. Patient was noted to be in PEA. The patient was intubated by the ER physician and ACLS protocols followed with eventual ROSC. Patient unfortunately arrested again and was found to be in V. fib. ACLS protocols were continued however the patient's rhythm devolved into asystole and there was no return of spontaneous circulation. Patient . Patient was pronounced at 2217.
== END 2021-06-16 22:17 | DRG 871 ==
LOC: ED 18:10 → 2B-ACE 18:13 → UNDOADMIN 23:02 → IMCU 23:02 → ED 06-16 22:17
PROVIDERS: ADMIT Internal Medicine Geriatric Medicine; ATTEND Internal Medicine Geriatric Medicine
PROC: 5A09357 Assistance with Respiratory Ventilation, Less than 24 Consecutive Hours, Continuous Positive Airway Pressure (ICD-10-PCS; 2021-06-15)
PROC: 5A0935A Assistance with Respiratory Ventilation, Less than 24 Consecutive Hours, High Flow/Velocity Cannula (ICD-10-PCS; principal; 2021-06-16)
PROC: 5A1935Z Respiratory Ventilation, Less than 24 Consecutive Hours (ICD-10-PCS; 2021-06-16)
PROC: 0BH17EZ Insertion of Endotracheal Airway into Trachea, Via Natural or Artificial Opening (ICD-10-PCS; 2021-06-16)
DX: A41.89 Other specified sepsis (principal); U07.1 COVID-19; J12.82 Pneumonia due to coronavirus disease 2019; J96.01 Acute respiratory failure with hypoxia; N17.0 Acute kidney failure with tubular necrosis; E87.1 Hypo-osmolality and hyponatremia; I10 Essential (primary) hypertension; R79.89 Other specified abnormal findings of blood chemistry; R79.1 Abnormal coagulation profile; R65.20 Severe sepsis without septic shock; D75.1 Secondary polycythemia; D69.6 Thrombocytopenia, unspecified; I49.01 Ventricular fibrillation; I46.9 Cardiac arrest, cause unspecified
CPT/HCPCS: 36415; 71045; 80048; 80053; 80061; 81001; 82140; 82550; 82728; 82947; 83615; 83930; 84145; 84484; 84550; 85025; 85379; 85610; 86140; 87040; 93005; G0378; J0171; J0456; J0461; J0696; J1100; J1265; J1644; J2001; J2060; J7030; U0003